=== PATIENT | female | born 1990 | race Caucasian/White ===

== ENCOUNTER 2017-06-29 08:00 | Inpatient (IN) | payer OTHER ==
[~2017-06-29] VITALS: Ht 160 cm; Wt 120.2 kg
--- NOTE | ~2017-06-29 | DS ---
Unit #: [id number] #: [id number] Patient: LORENZA EASTMAN [id number] [facility] [address] [place] [address] [id number] MR#: [id number] NAME: LORENZA EASTMAN. ROOM: [facility] Age: 27 Sex: F Admission Date: 06/29/2017 : 1990 Discharge Date: 07/02/2017 Attending Physician: Gerson Nesbitt M.D. Primary Care Physician: Generic Doctor Not In System DISCHARGE SUMMARY REASON FOR ADMISSION The patient is a 27-year-old white female, admitted with worsening symptoms of paranoia. HOSPITAL COURSE The patient was admitted to the [facility] unit and placed on suicide precautions. She was initially continued on previously prescribed medications including Seroquel XR, Paxil, Haldol, and lorazepam. The decision was made with the patient's agreement that we would discontinue Seroquel XR and this medication was tapered and discontinued and instead the patient was started on Latuda 40 mg daily to address psychotic symptoms. The patient tolerated the medication cross titration well and by 07/02/2017, was in bright spirits and requesting discharge from the hospital and it was so ordered. FINAL DIAGNOSES Schizoaffective disorder; history of traumatic brain injury; morbid obesity. DISPOSITION ON DISCHARGE The patient is discharged on the following medications: Paxil 30 mg daily for depression, Haldol 2 mg nightly for psychosis, Vistaril 25 mg q.6 hours p.r.n. anxiety, and Latuda 40 mg daily for mood stabilization. DISCHARGE INSTRUCTIONS No dietary or physical restrictions were placed upon the patient at the time of discharge. FOLLOWUP She will follow up through the auspices of "[facility]." PROGNOSIS Her prognosis is considered fair. Dictated by... Gerson Nesbitt M.D. CB/juliusl TD: 07/02/2017 15:46 JOB #: [id number] Unit #: [id number] #: [id number] Patient: LORENZA EASTMAN DISCHARGE SUMMARY Page 1 of 1 X Gerson Nesbitt MD X DISCHARGE SUMMARY
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
--- NOTE | ~2017-06-29 | PN ---
Unit #: [id number] #: [id number] Patient: LORENZA EASTMAN [id number] [facility] [address] [place] [address] [id number] I MR#: [id number] NAME: LORENZA EASTMAN ROOM: [facility] Age: 27 Sex: F Admission Date: 06/29/2017 : 1990 Attending Physician: Gerson Nesbitt M.D. Admitting Physician: Gerson Nesbitt M.D. Primary Care Physician: Generic Doctor Not In System [facility] PROGRESS NOTES DATE 07/01/2017 DISCUSSION The patient seems much brighter today. She is active within the therapeutic milieu. We are beginning cross titration of Latuda and Seroquel as today we will reduce her dose of Seroquel XR to 100 mg, increasing Latuda to 40 mg which will probably our final dose of that medication. Dictated by... Gerson Nesbitt M.D. CB/fish TD: 07/01/2017 13:20 JOB #: [id number] [facility] PROGRESS NOTES Page 1 of 1 X Gerson Nesbitt MD X PROGRESS NOTE
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
[2017-06-30 09:54] LABS: BASOPHIL% 0.5 % (0-2.5); EOSINOPHIL# 0.2 X10e3 (0-0.7); EOSINOPHIL% 2.5 % (0.0-7.0); HEMOGLOBIN 12.9 gm/dL (12.0-16.0); LYMPHOCYTE# 2.1 X10e3 (1.0-3.5); LYMPHOCYTE% 25.6 % (17.0-45.0); MEAN CELL VOLUME 84.1 FL (83-96); MEAN CORPUSCULAR HEMOGLOBIN 27.7 PG (28-34); MEAN PLATELET VOLUME 7.9 FL (6.5-11.5); MONOCYTE# 0.5 X10e3 (0-1.0); MONOCYTE% 6.2 % (3.0-12.0); NEUTROPHIL# 5.3 X10e3 (1.5-7.1); NEUTROPHIL% 65.2 % (40-75); PLATELET COUNT 348 X10e3 (140-420); RED BLOOD COUNT 4.64 X10e (3.90-5.30); RED CELL DISTRIBUTION WIDTH 13.8 % (11.0-15.5); WHITE BLOOD COUNT 8.1 X10e3 (4.0-10.5)
[2017-06-30 09:59] LABS: DIFF IND NO
[2017-06-30 10:03] LABS: BUN/CREATININE RATIO 11.25; CALCIUM SERUM 9.1 mg/dL (8.4-10.2); CREATININE SERUM 0.8 mg/dL (0.6-1.4); GLOM FILT RATE Estimated 99.7 mL/min (>60); PROTEIN TOTAL SERUM 7.5 g/dL (6.0-8.3)
[2017-07-02 09:55] LABS: URINE APPEARANCE CLOUDY; URINE BILIRUBIN NEG (NEG); URINE BLOOD NEG (NEG); URINE COLOR YELLOW; URINE GLUCOSE NEG (NEG); URINE KETONE NEG (NEG); URINE LEUKOCYTE ESTERASE 1+ (NEG); URINE NITRATE NEG (NEG); URINE PROTEIN NEG (NEG); URINE SPECIFIC GRAVITY 1.012 (1.003-1.035); URINE UROBILINOGEN 0.2 MG/DL (NEG)
[2017-07-02 09:57] LABS: URINE SQUAMOUS EPITHELIAL CELL FEW /[HPF]
[2017-07-02 10:48] LABS: AMPHETAMINE NEG (NEG); BARBITURATES NEG (NEG); BENZODIAZEPINES NEG (NEG); COCAINE NEG (NEG); MARIJUANA NEG (NEG); OPIATES NEG (NEG); TRICYCLIC ANTIDEPRESSANTS POS (NEG); U METHADONE NEG (NEG)
[2017-07-02 10:55] LABS: URINE MUCUS PRESENT
[2017-07-02 10:57] LABS: URBCS1 AUWI 0-2 /[HPF] (0-2)
== END 2017-07-02 16:35 | disposition home or self-care (01) | DRG 885 ==
LOC: POF 09:41 → P1S 09:41 → P2L 09:41 → P1S 13:39 → P2L 06-30 16:56
PROVIDERS: Specialist
DX: F25.9 Schizoaffective disorder, unspecified (principal); Z68.42 Body mass index [BMI] 45.0-49.9, adult; E66.01 Morbid (severe) obesity due to excess calories; Z87.820 Personal history of traumatic brain injury
CPT/HCPCS: 80053; 80307; 81003; 84703; 85025